=== PATIENT | male | born 1970 | race Caucasian/White ===

== ENCOUNTER 2022-08-10 15:03 | Inpatient (IN) ==
--- NOTE | 2022-08-10 15:28 | XRay Report ---
XR chest 1V portable CLINICAL HISTORY: Chest pain, nonspecific TECHNIQUE: Single frontal radiograph of the chest was obtained. Comparison: None available at the time of this dictation. FINDINGS: No lines and tubes are seen. Cardiomegaly is noted. The lungs are clear. No evidence of pleural effus ion or pneumothorax. IMPRESSION: ACT 112: Negative or not required by law. Electronically signed by: Gary Austin M.D. 08/10/2022 3:27 PM
[2022-08-10 15:41] LABS: Basophils # (auto) 0.05 K/uL (0-0.2); Basophils % (auto) 0.6 %; Eosinophils # (auto) 0.12 K/uL (0-0.50); Eosinophils % (auto) 1.4 %; Hematocrit (blood only) 43.1 % (40.1-51.0); Hemoglobin 15.1 g/dl (14.0-18.0); Immature Granulocytes # (auto) 0.04 K/uL (0.00-0.02); Immature Granulocytes % (auto) 0.5 %; Lymphocytes # (auto) 3.68 K/uL (1.2-3.4); Lymphocytes % (auto) 41.7 %; Mean Corpuscular Hemoglobin 30.9 pg (25.0-34.0); Mean Corpuscular Volume 88.1 fL (80.0-100.0); Mean Platelet Volume 8.8 fL (9.4-12.4); Monocytes # (auto) 0.73 K/uL (0.24-0.82); Monocytes % (auto) 8.3 %; Neutrophils # (auto) 4.21 K/uL (1.4-6.5); Neutrophils % (auto) 47.5 %; Platelet Count 257 K/uL (130-400); RDW Coefficient of Variation 12.5 % (11.5-14.5); RDW Standard Deviation 39.9 fL (36.4-46.3); Red Blood Count 4.89 M/uL (4.63-6.08); White Blood Count 8.83 K/ul (4.8-10.8)
--- NOTE | 2022-08-10 16:03 | Emergency Department Note ---
History of Present Illness General Chief complaint: Chest Pain Stated complaint: CHEST PAIN Time Seen by Provider: 08/10/22 15:08 History of Present Illness Maximum Pain Intensity: 1 52-year-old male presents to the ED with a chief complaint of chest pain for the past 1 to 2 weeks. The patient states that his symptoms seem to be mostly present when walking or exertion. Last night it seemed to be present a little at rest. He reports a history of high cholesterol. He states that his symptoms started after a COVID-like illness a couple of weeks ago. Denies any pain or swelling in his legs. No fevers fevers. No additional complaints at this time. Home Medications Medication Instructions Recorded Confirmed Type atorvastatin 20 mg tablet 20 mg PO HS 08/10/22 08/10/22 History Allergies Allergy/AdvReac Type Severity Reaction Status Date / Time No Known Allergies Allergy Unverified 08/10/22 16:01 Past Med/Surg History Medical History High cholesterol Social History Smoking Status: Never smoker Preferred Language: Swedish Feels Safe at Home: Yes Review of Systems A total of 10 systems reviewed and were otherwise negative Physical Exam Vital Signs Vital Signs - 24 hr 08/10/22 15:04 08/10/22 15:47 Temperature 36.5 C Temperature Source Temporal Artery Scan Pulse Rate 72 Respiratory Rate 19 Respiratory Effort / Characteristics Non-Labored Respiratory Depth Normal Blood Pressure 181/122 H Blood Pressure Mean 141 Pulse Oximetry 98 97 Oxygen Delivery Method Room Air Room Air Sepsis Recent Fever Within 48 Hours No Sepsis New/Unexplained Change in Mental Status N/A Sepsis Action Taken by Nursing No Action Required CONSTITUTIONAL/VITAL SIGNS: Reviewed / noted above. GENERAL: Non-toxic in appearance. INTEGUMENTARY: Warm, dry, and [place]. HEAD: Normocephalic. EYES: without scleral icterus or trauma. ENT/OROPHARYNX: clear and moist. LYMPHADENOPATHY/NECK: Is supple without lymphadenopathy or meningismus. RESPIRATORY: Clear to auscultation bilaterally. No increased work of breathing. CARDIOVASCULAR: Regular rate and rhythm. GI/ABDOMEN: Soft and nontender. No organomegaly or pulsatile mass. EXTREMITIES: Warm and well perfused. BACK: No CVA tenderness. NEUROLOGICAL: Intact without focal deficits. PSYCHIATRIC: normal affect. MUSCULOSKELETAL: Normally developed with good muscle tone. TRIAGE NURSING DOCUMENTATION REVIEWED. Medical Decision Making Differential Diagnosis The differential that was considered includes acute myocardial infarction, acute coronary syndrome, myocarditis, pericarditis, pericardial effusions /tamponade, esophageal perforation, thoracic aortic dissection, pulmonary embolism, pneumonia, pneumothorax, pancreatitis, shingles, acute cholecystitis, perforated abdominal viscus. Medical Records Attestation: I reviewed the patient's medical records. Home Medications Current Medication List: was personally reviewed by me Laboratory Data Attestation: I reviewed the patient's lab results. Result diagrams: 08/10/22 15:20 08/10/22 15:20 Lab Results 08/10/22 08/10/22 Range/Units 15:20 15:20 WBC 8.83 (4.8-10.8) K/ul RBC 4.89 (4.63-6.08) M/uL Hgb 15.1 (14.0-18.0) g/dl Hct 43.1 (40.1-51.0) % MCV 88.1 (80.0-100.0) fL MCH 30.9 (25.0-34.0) pg MCHC 35.0 (32.0-36.0) g/dL RDW Std Deviation 39.9 (36.4-46.3) fL RDW Coeff of Jose Angel 12.5 (11.5-14.5) % Plt Count 257 (130-400) K/uL MPV 8.8 L (9.4-12.4) fL Immature Gran % (Auto) 0.5 % Neut % (Auto) 47.5 % Lymph % (Auto) 41.7 % [place] % (Auto) 8.3 % Eos % (Auto) 1.4 % Baso % (Auto) 0.6 % Neut # (Auto) 4.21 (1.4-6.5) K/uL Lymph # (Auto) 3.68 H (1.2-3.4) K/uL [place] # (Auto) 0.73 (0.24-0.82) K/uL Eos # (Auto) 0.12 (0-0.50) K/uL Baso # (Auto) 0.05 (0-0.2) K/uL Immature Gran # (Auto) 0.04 H (0.00-0.02) K/uL Sodium 141 (136-145) mmol/L Potassium 3.7 (3.5-5.1) mmol/L Chloride 105 (98-107) mmol/L Carbon Dioxide 27 (21-32) mmol/L Anion Gap 9 (3-11) BUN 14 (6-23) mg/dl Creatinine 1.06 (0.6-1.4) mg/dl Est Cr Clr Drug Dosing 106.4 ml/min Est GFR ( Amer) 94.4 ml/min Est GFR (Non-Af Amer) 81.4 ml/min BUN/Creatinine Ratio 13.2 (10-20) Glucose 102 H (70-99(Fasting)) mg/dl Calcium 9.2 (8.5-10.1) mg/dl Total Bilirubin 0.4 (0.2-1.0) mg/dl AST 20 (13-39) U/L ALT 31 (7-52) U/L Alkaline Phosphatase 63 (34-104) U/L Troponin I High Sens 16.7 (0-20) pg/ml Total Protein 7.7 (6.0-8.3) gm/dl Albumin 4.6 (3.4-5.0) gm/dl Globulin 3.1 (2.5-4.0) gm/dl Albumin/Globulin Ratio 1.5 (0.9-2) Lipase 41 (11-82) U/L Imaging Data My Impression: Chest x-ray: Per my review, agree with radiologist interpretation of no acute disease. N the radiologist Radiologist's Impression: Chest X-Ray 08/10/22 15:09 XR chest 1V portable CLINICAL HISTORY: Chest pain, nonspecific TECHNIQUE: Single frontal radiograph of the chest was obtained. Comparison: None available at the time of this dictation. FINDINGS: No lines and tubes are seen. Cardiomegaly is noted. The lungs are clear. No evidence of pleural effusion or pneumothorax. IMPRESSION: ACT 112: Negative or not required by law. Electronically signed by: Gary Austin M.D. 08/10/2022 3:27 PM ECG Data Attestation: I personally reviewed and interpreted this ECG as follows: Additional Comments: Twelve-lead EKG: Per my interpretation shows a normal sinus rhythm at a rate of 72. Notes elevation. No PVCs. Normal QTC MDM Narrative 52-year-old male presents with chest pain that seems to be more prominent with exertion over the past week or 2. Last night it was prominent slightly at rest. History of high cholesterol. Vital signs reveal hypertension. Physical exam was unremarkable. The patient's EKG shows a sinus rhythm without acute ischemic changes. Chest x-ray did not show acute process. The troponin does not show any concerning elevations. CBC and chemistry was unremarkable. No significant anemia. The patient has symptoms concerning for unstable angina. He will be seen by the hospitalist for further evaluation and care. Impression & Plan Angina pectoris, unstable Discharge Plan Visit Data Chief Complaint: Chest Pain Stated Complaint: CHEST PAIN ED Provider: Bola Galaviz Discharge Problem: Angina pectoris, unstable Patient Disposition: Being Evaluated by Hospitalist Forms Stand Alone Forms: [facility] Prescriptions Prescriptions: No Action atorvastatin 20 mg tablet 20 mg PO HS Referrals Referrals: PCP,NO [Primary Care Provider] -
[2022-08-10 16:12] LABS: Troponin I High Sensitivity 16.7 pg/ml (0-20)
[2022-08-10 16:19] LABS: Albumin Globulin Ratio 1.5 (0.9-2); Albumin Level 4.6 gm/dl (3.4-5.0); BUN Creatinine Ratio 13.2 (10-20); Bilirubin,Total 0.4 mg/dl (0.2-1.0); Calcium 9.2 mg/dl (8.5-10.1); Creatinine Clr Calc Pharmacy 106.4 ml/min; Est GFR (African American) 94.4 ml/min; Est GFR (Non-African American) 81.4 ml/min; Globulin 3.1 gm/dl (2.5-4.0); Potassium 3.7 mmol/L (3.5-5.1); Total Protein 7.7 gm/dl (6.0-8.3)
[2022-08-10] MEDS ORDERED: ASPIRIN CHEW 324 MG PO STA (16:34)
[2022-08-10] MEDS ORDERED: NITROGLYCERIN 2% OINTMENT 30GM TUBE EXT ONE (16:48)
--- NOTE | 2022-08-10 16:49 | History & Physical Report ---
Date of Service August 10, 2022 Assessment & Plan (1) Angina pectoris, unstable: Plan: Rule out alternative explanations for chest pain given recent COVID will take a D-dimer to assess need for CT for PE However he has very typical unstable angina symptoms Serial troponins overnight - would expect these to be negative or minimally elevated given pain at rest was yesterday Given previous normal stress test and typical pain for coronary artery disease we will consult cardiology to forgo stress testing and perform cardiac cath. TTE Lipid panel in AM HbA1C NPO after midnight for cardiac cath tomorrow pending cardiology consult (2) High cholesterol: Plan: Continue atorvastatin 20 mg p.o. at bedtime -will need to be increased to high intensity statin depending on lipid panel and coronary catheterization Plan VTE Prophylaxis - Lovenox 40mg SQ daily Diet - heart healthy Disposition - observation to PCU Admission and Anticipated Discharge Date Admission Date: August 10, 2022 History of Present Illness Chief Complaint: Chest pain Primary Care Provider: NO PCP Jeremie Schmitz is a 52-year-old male who presents to the ER with chest pain. He reports typical substernal chest pain on exertion. Severity 2 out of 10 on walking to the emergency room today. Progressively getting worse over the last 2 weeks with less and less exertion and occurred at rest yesterday evening. No episodes at rest today. No worse on inspiration or position. He has never had this pain before but reports having a stress test performed by Dr. Tejada in [place] 1.5 years ago which was normal. He denies any history of diabetes. Non-smoker. He has treated hypercholesterolemia with atorvastatin. Although his blood pressure in the emergency room is elevated he reports this was previously normal at his last visit with Dr. Tejada earlier this year and he is not on any antihypertensives. He has a significant family history of myocardial infarction with his father in his early 60s and grandfather at unknown age. This is on a background of a respiratory illness that he believes was COVID approximately 4 weeks ago. His family was tested positive after he became ill therefore he also seemed he had the illness. He did not require hospitalization but reports the chest pain started a few weeks after this illness. Allergies Allergy/AdvReac Type Severity Reaction Status Date / Time No Known Allergies Allergy Unverified 08/10/22 16:01 Home Medications Medication Instructions Recorded Confirmed Type atorvastatin 20 mg tablet 20 mg PO HS 08/10/22 08/10/22 History Past Med/Surg History Medical History High cholesterol Social History Smoking Status: Never smoker Hx Alcohol Use: Yes Alcohol type: beer, wine and hard liquor Hx Substance Use: No Preferred Language: Setswana Pool Technician Required: No Beliefs That Will Affect Care: None Current Living Situation: Spouse Other Information That Helps Us Care for You: No Feels Safe at Home: Yes Safety Concerns: Feels Safe At This Time Assistive Devices: BiPap Review of Systems Review of Systems: All systems reviewed & are unremarkable except as noted in HPI & below Physical Exam Constitutional: WD/WN, vitals as above Respiratory: normal respiratory effort, lungs clear to auscultation Cardiovascular: RRR, no murmur, no edema Gastrointestinal (Abdomen): normal bowel sounds, soft, nontender, no hepa tosplenomegaly Musculoskeletal: no cyanosis or clubbing, extremities motor strength 5/5 Skin: no rashes, warm and dry Neurologic: moves all extremities and awake; not confused Psychiatric: A+Ox3, euthymic affect Results & Data Results & Data ([facility]) Vital Signs (Past 12 Hours) Vital Signs Temp Pulse Resp BP Pulse Ox O2 Del Method 08/10/22 15:47 97 Room Air 08/10/22 15:04 36.5 C 72 19 181/122 H 98 Room Air Laboratory Results Abnormal lab results 08/10/22 08/10/22 Range/Units 15:20 15:20 MPV 8.8 L (9.4-12.4) fL Lymph # (Auto) 3.68 H (1.2-3.4) K/uL Immature Gran # (Auto) 0.04 H (0.00-0.02) K/uL Glucose 102 H (70-99(Fasting)) mg/dl Diagnostic Findings XR chest 1V portable CLINICAL HISTORY: Chest pain, nonspecific TECHNIQUE: Single frontal radiograph of the chest was obtained. Comparison: None available at the time of this dictation. FINDINGS: No lines and tubes are seen. Cardiomegaly is noted. The lungs are clear. No evidence of pleural effusion or pneumothorax. Medications Administered ER medications given: Aspirin 324 mg p.o. ECG Indication: chest pain Rate (beats per minute): 72 Rhythm: normal sinus Findings: no acute ischemic change Comparison ECG Date: no prior available Code Status & VTE Plan Code Status Full VTE Prophylaxis Plan VTE Prophylaxis will be ordered: Yes PG Care Time/CCT Total # of Minutes Spent Total Time Spent with Patient: Total time spent is greater than 50% in coordination of care (as documented) at patient's floor/unit and/or counseling patient: Coding Level of Care Code INT OBSERVATION CARE 70M LVL 3 Diagnoses Angina pectoris, unstable I20.0 High cholesterol E78.00
[2022-08-10 17:43] LABS: D Dimer 260 ug/L FEU (0-500); Partial Thromboplastin Time 28.4 Seconds (21.0-31.0); Prothrombin Time 10.3 Seconds (9.0-12.0)
[2022-08-10] MEDS ORDERED: ONDANSETRON INJ 2 MG/ML 2 ML VIAL IV PRN (18:39)
[2022-08-10] MEDS ORDERED: NITROGLYCERIN SL 0.4 MG/TAB TAB SL PRN (18:39)
[2022-08-10] MEDS: METOPROLOL TARTRATE 25 MG TAB PO SCH (20:47)
[2022-08-10] MEDS ORDERED: ATORVASTATIN 20 MG TAB PO SCH (21:00)
[2022-08-10] MEDS ORDERED: ENOXAPARIN INJ 40 MG/0.4 ML SYR SQ SCH (21:55)
--- NOTE | 2022-08-10 23:13 | Electrocardiogram Report ---
Test Reason : Blood Pressure : / mmHG Vent. Rate : 072 BPM Atrial Rate : 072 BPM P-R Int : 198 ms QRS Dur : 080 ms QT Int : 346 ms P-R-T Axes : 050 043 -08 degrees QTc Int : 378 ms Normal sinus rhythm Poor R wave progression, consider anterior HI vs. lead placement vs. LVH Nonspecific T wave abnormality Abnormal ECG No previous ECGs available Confirmed by Sp Alicea ([id number]) on 08/10/2022 11:13:24 PM Referred By: Confirmed By:Sp Alicea
[2022-08-10] MEDS: NITROGLYCERIN 2% OINTMENT 30GM TUBE EXT SCH (23:51)
[2022-08-11 04:44] LABS: Basophils # (auto) 0.04 K/uL (0-0.2); Basophils % (auto) 0.4 %; Eosinophils # (auto) 0.14 K/uL (0-0.50); Eosinophils % (auto) 1.4 %; Hematocrit (blood only) 39.1 % (40.1-51.0); Hemoglobin 13.7 g/dl (14.0-18.0); Immature Granulocytes # (auto) 0.03 K/uL (0.00-0.02); Immature Granulocytes % (auto) 0.3 %; Lymphocytes # (auto) 3.61 K/uL (1.2-3.4); Lymphocytes % (auto) 35.2 %; Mean Corpuscular Volume 88.5 fL (80.0-100.0); Monocytes % (auto) 7.8 %; Neutrophils # (auto) 5.65 K/uL (1.4-6.5); Neutrophils % (auto) 54.9 %; Platelet Count 235 K/uL (130-400); RDW Coefficient of Variation 12.8 % (11.5-14.5); RDW Standard Deviation 41.1 fL (36.4-46.3); Red Blood Count 4.42 M/uL (4.63-6.08); White Blood Count 10.27 K/ul (4.8-10.8)
[2022-08-11 05:18] LABS: Anion Gap 8 (3-11); Blood Urea Nitrogen 17 mg/dl (6-23); Calcium 8.9 mg/dl (8.5-10.1); Carbon Dioxide 23 mmol/L (21-32); Chloride 108 mmol/L (98-107); Cholesterol 195 mg/dl (0-200); Creatinine Clr Calc Pharmacy 99.8 ml/min; Est GFR (African American) 87.4 ml/min; Est GFR (Non-African American) 75.4 ml/min; Glucose 117 mg/dl (70-99(Fasting)); HDL Cholesterol 31 mg/dl; Magnesium 2.1 mg/dl (1.7-2.4); Potassium 3.9 mmol/L (3.5-5.1); Sodium 139 mmol/L (136-145); Triglycerides 442 mg/dl (0-150)
[2022-08-11] MEDS: NITROGLYCERIN 2% OINTMENT 30GM TUBE EXT SCH ×2 (05:27→11:35)
[2022-08-11 05:28] LABS: Chol HDL Ratio 6.3 (0-5)
[2022-08-11 06:31] LABS: Estimated Average Glucose 134 mg/dl; Hemoglobin A1C 6.3 % (4.5-5.6)
[2022-08-11] MEDS: ASPIRIN 81 MG ECTAB PO SCH (08:26)
[2022-08-11] MEDS: METOPROLOL TARTRATE 25 MG TAB PO SCH ×2 (08:26→19:38)
[2022-08-11] MEDS ORDERED: ACETAMINOPHEN 325 MG TAB PO PRN (08:29)
[2022-08-11] MEDS ORDERED: LACTATED RINGER'S 1,000 ML IV SCH (08:45)
--- NOTE | 2022-08-11 09:38 | XCELERA ---
[id number]
[2022-08-11] MEDS ORDERED: HEPARIN (PORCINE) 1000 UNIT/ML 10 ML (CATH LAB USE ONLY) ONE ×2 (10:51→12:36)
[2022-08-11] MEDS ORDERED: niCARdipine HCL INJ 2.5 MG/ML 10 ML AMP ONE (10:51)
[2022-08-11] MEDS ORDERED: NITROGLYCERIN/D5W 100MCG/ML 20ML SYR ONE (10:52)
[2022-08-11] MEDS ORDERED: fentaNYL citrate 100 MCG/2 ML VIAL ONE ×2 (10:52→12:48)
[2022-08-11] MEDS ORDERED: MIDAZOLAM HCL 1 MG/ML 2ML VIAL ONE ×3 (10:52→12:48)
--- NOTE | 2022-08-11 10:53 | Pre Anesthesia Assessment ---
Date of Service August 11, 2022 Pre Sedation Assessment Vital Signs Temp Pulse Pulse Resp BP BP Pulse Ox 08/11/22 08:53 67 08/11/22 07:16 36.3 C L 64 19 111/65 93 08/11/22 03:52 36.6 C 61 18 113/71 94 08/10/22 22:02 36.7 C 61 19 132/71 95 08/10/22 20:48 37 C 73 18 129/72 95 08/10/22 19:41 08/10/22 19:31 74 18 126/78 94 08/10/22 18:00 72 16 96 08/10/22 18:00 139/83 08/10/22 17:30 78 15 96 08/10/22 17:30 150/88 H 08/10/22 17:11 152/99 H 08/10/22 17:11 73 17 98 08/10/22 16:31 181/97 H 08/10/22 16:30 76 20 95 08/10/22 16:01 189/88 H 08/10/22 16:01 80 15 96 08/10/22 16:00 77 15 97 08/10/22 15:30 76 15 98 08/10/22 15:30 185/107 H 08/10/22 15:29 78 15 08/10/22 16:52 08/10/22 16:41 80 16 181/97 H 95 08/10/22 15:47 97 08/10/22 15:04 36.5 C 72 19 181/122 H 98 Pulse Ox O2 Del Method O2 Del Method 08/11/22 08:53 08/11/22 07:16 Room Air 08/11/22 03:52 BiPAP 08/10/22 22:02 Room Air 08/10/22 20:48 Room Air 08/10/22 19:41 94 Room Air 08/10/22 19:31 Room Air 08/10/22 18:00 08/10/22 18:00 08/10/22 17:30 08/10/22 17:30 08/10/22 17:11 08/10/22 17:11 08/10/22 16:31 08/10/22 16:30 08/10/22 16:01 08/10/22 16:01 08/10/22 16:00 08/10/22 15:30 08/10/22 15:30 08/10/22 15:29 08/10/22 16:52 Room Air 08/10/22 16:41 Room Air 08/10/22 15:47 Room Air 08/10/22 15:04 Room Air Cardiovascular RRR, no murmur, no edema Respiratory normal respiratory effort, lungs clear to auscultation Pre-Sedation Airway Assessment Smoking Status: Never smoker Mallampati Class: III ASA: ASA3 NPO Status Date of Last Intake of Fluids: 08/10/22 Time of Last Intake of Fluids: 21:00 Date of Last Intake of Solid Food: 08/10/22 Time of Last Intake of Solid Foods: 21:00 Procedure Planning Contraindications for Sedation: none Current Medications Reviewed: Yes Notes The planned sedation has been discussed with the patient. Informed Consent was obtained. I have identified the patient, determined the appropriateness of sedation and have assessed the patient immediately prior to the procedure. All medicine(s) and interventions are by my order.
--- NOTE | 2022-08-11 11:02 | Cardiology Consultation ---
Date of Consultation August 11, 2022 Assessment & Plan (1) Angina pectoris, unstable: (2) Dyslipidemia: (3) Elevated troponin: Plan ASSESSMENT/PLAN: 1. Unstable angina: Symptoms concerning for unstable angina and had mildly elevated troponin. Recommend cardiac catheterization. Risks and benefits discussed with him in detail. He was made aware that CT surgery is not available at this facility. Recommend aspirin, beta-brigitte, and statin therapy. If there is a delay in cardiac catheterization, would start heparin drip for recurrent symptoms. 2. Dyslipidemia: If found to have CAD, would recommend high intensity statin therapy. Direct LDL ordered at this time. Triglycerides elevated. Mediterranean diet. If adjustment in statin therapy is made and triglycerides do not show much improvement, could consider specific treatment for triglyceridemia, in addition to statin therapy. 3. Elevated troponin: Plan as above. Currently chest pain-free. 4. Disposition: Plan of care communicated with Dr. Callahan of the primary hospitalist service. Cardiac catheterization currently pending. Follow-up with his primary pipeline dispatch operator, Dr. Tejada, when discharged. Highly complex medical issues for which cardiac catheterization was recommended. Thank you for allowing me to participate in the care of your patient. Please call for any other questions or concerns. Sincerely, Faheem Alicea M.D. History of Present Illness Reason for Consultation: Unstable angina Requesting Physician: Pedro Callahan MD Attending Physician: Pedro Callahan MD History of Present Illness Mr. Schmitz is a very pleasant 52-year-old gentleman with a history significant for dyslipidemia. His primary pipeline dispatch operator is Dr. Tejada in [facility]. Over the past few weeks, he has developed substernal chest pressure with exertion. It is occurring more frequently and now to the point that it occurs daily with most exertion. It can occur even on a flat surface walking only 100 feet. He had an episode at rest 2 nights ago but wonders if it was related to a large meal. The chest discomfort does not radiate and there is no associated nausea, diaphoresis, or dyspnea. Chest discomfort resolves within a couple of minutes of rest. He drove himself here and had no chest discomfort while driving but on the walk from the parking lot into the emergency department, had the same chest discomfort. It resolved with rest before receiving medical therapy. He has not had any further chest discomfort since admission. His initial troponin was 16.7 and increased to a peak of 55.4 before trending downward. His initial ECG demonstrated sinus rhythm with nonspecific T wave abnormality. He denies melena, hematochezia, hematuria, palpitations, syncope, near syncope, edema, nausea, or vomiting. He had a stress test approximately 1.5 years ago with his primary pipeline dispatch operator. He states that the test was done for hypertension. He was not experiencing chest discomfort at that time. He had COVID infection prior to the stress test and was reinfected again approximately 1 month ago. He has been on a statin therapy through his primary pipeline dispatch operator. He has not required hypertension treatment. Review of systems: As above. Review of systems otherwise negative/unremarkable. Family history: Father had [place] in his 60s. Social history: He denies smoking or drug abuse. Occasional alcohol. He lives at home with his girlfriend and 2 teenage daughter he had his 3 daughters in total. He is not . He owns [employer]. He was unaccompanied in his hospital room. He states that if he is unable to make decisions for himself, he prefers that his mother, Rand Nation ([phone]), makes decisions for him. Allergies Allergy/AdvReac Type Severity Reaction Status Date / Time No Known Allergies Allergy Unverified 08/10/22 16:01 Home Medications Medication Instructions Recorded Confirmed Type atorvastatin 20 mg tablet 20 mg PO HS 08/10/22 08/10/22 History Patient History Medical History (Updated 08/11/22 @ 11:28 by Sp Alicea MD) Dyslipidemia Social History Smoking Status: Never smoker Hx Alcohol Use: Yes Alcohol type: beer, wine and hard liquor Hx Substance Use: No Preferred Language: Turkmen Associate Accountant Required: No Beliefs That Will Affect Care: None Current Living Situation: Spouse Other Information That Helps Us Care for You: No Feels Safe at Home: Yes Safety Concerns: Feels Safe At This Time Assistive Devices: BiPap Physical Exam Physical Exam: Gen.: No acute distress. Alert and oriented. HEENT: Anicteric sclera. Neck: No JVD. No bruits. Normal carotid upstrokes bilaterally. Cardiac: PMI was nonpalpable. No ventricular heave. Regular. Normal S1-S2. No murmurs, rubs, or gallops. Pulmonary: Clear to auscultation bilaterally without wheezes, rales, or rhonchi. Abdomen: Soft, nontender, nondistended, with normoactive bowel sounds. No bruits noted. Extremities: 2+ radial pulses bilaterally. 2+ posterior tibialis pulses bilaterally. No edema or cyanosis. Psychiatric: Affect appears appropriate. Chest: Nontender to palpation. Results & Data ([facility]) Vital Signs (Past 12 Hours) Vital Signs Temp Pulse Pulse Resp BP Pulse Ox O2 Del Method 08/11/22 08:53 67 08/11/22 07:16 36.3 C L 64 19 111/65 93 Room Air 08/11/22 03:52 36.6 C 61 18 113/71 94 BiPAP Laboratory Results Laboratory Results - last 24 hr 08/10/22 08/10/22 08/10/22 15:20 15:20 15:20 WBC 8.83 RBC 4.89 Hgb 15.1 Hct 43.1 MCV 88.1 MCH 30.9 MCHC 35.0 RDW Std Deviation 39.9 RDW Coeff of Jose Angel 12.5 Plt Count 257 MPV 8.8 L Immature Gran % (Auto) 0.5 Neut % (Auto) 47.5 Lymph % (Auto) 41.7 Blount % (Auto) 8.3 Eos % (Auto) 1.4 Baso % (Auto) 0.6 Neut # (Auto) 4.21 Lymph # (Auto) 3.68 H Blount # (Auto) 0.73 Eos # (Auto) 0.12 Baso # (Auto) 0.05 Immature Gran # (Auto) 0.04 H PT 10.3 INR 1.0 APTT 28.4 PTT Ratio 1.0 D-Dimer 260 Sodium 141 Potassium 3.7 Chloride 105 Carbon Dioxide 27 Anion Gap 9 BUN 14 Creatinine 1.06 Est Cr Clr Drug Dosing 106.4 Est GFR ( Amer) 94.4 Est GFR (Non-Af Amer) 81.4 BUN/Creatinine Ratio 13.2 Glucose 102 H Estimat Average Glucose Hemoglobin A1c Calcium 9.2 Magnesium Total Bilirubin 0.4 AST 20 ALT 31 Alkaline Phosphatase 63 Troponin I High Sens 16.7 Total Protein 7.7 Albumin 4.6 Globulin 3.1 Albumin/Globulin Ratio 1.5 Triglycerides Cholesterol LDL Cholesterol, Calc VLDL Cholesterol, Calc HDL Cholesterol Cholesterol/HDL Ratio Lipase 41 SARS-CoV-2, RNA, NAAT 08/10/22 08/10/22 08/11/22 16:39 22:40 04:09 WBC 10.27 RBC 4.42 L Hgb 13.7 L Hct 39.1 L MCV 88.5 MCH 31.0 MCHC 35.0 RDW Std Deviation 41.1 RDW Coeff of Jose Angel 12.8 Plt Count 235 MPV 9.0 L Immature Gran % (Auto) 0.3 Neut % (Auto) 54.9 Lymph % (Auto) 35.2 Blount % (Auto) 7.8 Eos % (Auto) 1.4 Baso % (Auto) 0.4 Neut # (Auto) 5.65 Lymph # (Auto) 3.61 H Blount # (Auto) 0.80 Eos # (Auto) 0.14 Baso # (Auto) 0.04 Immature Gran # (Auto) 0.03 H PT INR APTT PTT Ratio D-Dimer Sodium Potassium Chloride Carbon Dioxide Anion Gap BUN Creatinine Est Cr Clr Drug Dosing Est GFR ( Amer) Est GFR (Non-Af Amer) BUN/Creatinine Ratio Glucose Estimat Average Glucose Hemoglobin A1c Calcium Magnesium Total Bilirubin AST ALT Alkaline Phosphatase Troponin I High Sens 54.2 H* D Total Protein Albumin Globulin Albumin/Globulin Ratio Triglycerides Cholesterol LDL Cholesterol, Calc VLDL Cholesterol, Calc HDL Cholesterol Cholesterol/HDL Ratio Lipase SARS-CoV-2, RNA, NAAT NEGATIVE 08/11/22 08/11/22 08/11/22 04:09 04:09 04:09 WBC RBC Hgb Hct MCV MCH MCHC RDW Std Deviation RDW Coeff of Jose Angel Plt Count MPV Immature Gran % (Auto) Neut % (Auto) Lymph % (Auto) Blount % (Auto) Eos % (Auto) Baso % (Auto) Neut # (Auto) Lymph # (Auto) Blount # (Auto) Eos # (Auto) Baso # (Auto) Immature Gran # (Auto) PT INR APTT PTT Ratio D-Dimer Sodium 139 Potassium 3.9 Chloride 108 H Carbon Dioxide 23 Anion Gap 8 BUN 17 Creatinine 1.13 Est Cr Clr Drug Dosing 99.8 Est GFR ( Amer) 87.4 Est GFR (Non-Af Amer) 75.4 BUN/Creatinine Ratio 15.0 Glucose 117 H Estimat Average Glucose 134 Hemoglobin A1c 6.3 H Calcium 8.9 Magnesium 2.1 Total Bilirubin AST ALT Alkaline Phosphatase Troponin I High Sens 55.4 H* Total Protein Albumin Globulin Albumin/Globulin Ratio Triglycerides 442 H Cholesterol 195 LDL Cholesterol, Calc TNP VLDL Cholesterol, Calc TNP HDL Cholesterol 31 Cholesterol/HDL Ratio 6.3 H Lipase SARS-CoV-2, RNA, NAAT 08/11/22 09:52 WBC RBC Hgb Hct MCV MCH MCHC RDW Std Deviation RDW Coeff of Jose Angel Plt Count MPV Immature Gran % (Auto) Neut % (Auto) Lymph % (Auto) Blount % (Auto) Eos % (Auto) Baso % (Auto) Neut # (Auto) Lymph # (Auto) Blount # (Auto) Eos # (Auto) Baso # (Auto) Immature Gran # (Auto) PT INR APTT PTT Ratio D-Dimer Sodium Potassium Chloride Carbon Dioxide Anion Gap BUN Creatinine Est Cr Clr Drug Dosing Est GFR ( Amer) Est GFR (Non-Af Amer) BUN/Creatinine Ratio Glucose Estimat Average Glucose Hemoglobin A1c Calcium Magnesium Total Bilirubin AST ALT Alkaline Phosphatase Troponin I High Sens 40.6 H D Total Protein Albumin Globulin Albumin/Globulin Ratio Triglycerides Cholesterol LDL Cholesterol, Calc VLDL Cholesterol, Calc HDL Cholesterol Cholesterol/HDL Ratio Lipase SARS-CoV-2, RNA, NAAT Diagnostic Findings Echo 08/11/2022: Normal LV size, wall motion, systolic function. EF 60 to 65%. Moderate LVH. No significant valvular abnormalities. Chest x-ray 08/10/2022: Personally reviewed. No infiltrate. Lungs appeared clear. ECG personally reviewed as noted above in HPI. Telemetry personally reviewed: Sinus rhythm. No arrhythmia. Medications Administered Current Inpatient Medications Acetaminophen (Acetaminophen 325 Mg Tab) 650 mg PO Q4H PRN PRN Reason: Pain or Fever Stop: 09/10/22 08:28 Aspirin (Aspirin 81 Mg Ectab) 81 mg PO QAM [facility] Stop: 09/10/22 08:59 Last Admin: 08/11/22 08:26 Dose: 81 mg Atorvastatin Calcium (Atorvastatin 20 Mg Tab) 20 mg PO HS [facility] Stop: 09/09/22 20:59 Last Admin: 08/10/22 20:47 Dose: 20 mg Enoxaparin Sodium (Enoxaparin Inj 40 Mg/0.4 Ml Syr) 40 mg SQ QPM [facility] Stop: 09/09/22 21:54 Last Admin: 08/10/22 23:51 Dose: 40 mg Lactated Ringer's (Lr) 1,000 mls @ 100 mls/hr IV .Q10H [facility] Stop: 09/10/22 08:44 Last Admin: 08/11/22 10:23 Dose: 100 mls/hr Metoprolol Tartrate (Metoprolol Tartrate 25 Mg Tab) 25 mg PO BID [facility] Stop: 09/09/22 20:59 Last Admin: 08/11/22 08:26 Dose: 25 mg Nitroglycerin (Nitroglycerin Sl 0.4 Mg/Tab Tab) 0.4 mg SL UD PRN PRN Reason: Chest Pain Stop: 09/09/22 18:38 Nitroglycerin (Nitroglycerin 2% Ointment 30gm Tube) 1 inch EXT Q6 [facility] Stop: 09/10/22 00:00 Last Admin: 08/11/22 05:27 Dose: 1 inch Ondansetron HCl (Ondansetron Inj 2 Mg/Ml 2 Ml Vial) 4 mg IV Q6H PRN PRN Reason: Nausea Stop: 09/09/22 18:38 PG Care Time/CCT Total # of Minutes Spent Total Time Spent with Patient: Total time spent is greater than 50% in coordination of care (as documented) at patient's floor/unit and/or counseling patient: Coding Level of Care Code 84961 Office/OBS Consult Lvl 5 Diagnoses Angina pectoris, unstable I20.0 Dyslipidemia E78.5 Elevated troponin R77.8
--- NOTE | 2022-08-11 12:32 | Cardiac Catheterization ---
[facility] Data: Business Development Coordinator Cardiac Status Clinical evaluation leading to the procedure CAD Presenation: Unstable angina Anginal Classification: CCS IV Heart Failure: No Cardiogenic Shock within 24 Hours: No Cardiac Arrest within 24 Hours: No Imaging Studies Past 6 Months: Yes Stress Studies Past 6 Months: No Coronary Anatomy Dominant: Right Diagnostic Physicians Name: Sp Alicea MD Status: Elective Closure Device Percutaneous Entry Location: Radial Closure Device: Radial Band Recommendations: PCI without planned CABG Cardiac Cath Procedure Full Procedure Date August 11, 2022 Pre-Procedure Diagnosis Pre-Procedure Diagnosis: Angina AUC Score AUC Score: 8 Post-Procedure Diagnosis Post-Procedure Diagnosis: Severe CAD and Elevated Intracardiac Pressures Procedure(s) Performed Procedure(s) Performed: Coronary Angiography and Left Heart Cath Policy Service Coordinator Sp Alicea MD Pediatric Physician Assistant(s) Soni Packer Estimated Blood Loss Estimated Blood Loss: < 20 ml Medication(s) Medication(s): Fentanyl, Heparin, Lidocaine 1%, Nicardipine and Versed Summary of Findings Procedures: 1. Coronary angiography 2. Left heart catheterization 3. Moderate sedation Indication: 52-year-old gentleman with a history of dyslipidemia who presented with unstable angina and mildly elevated troponin elevation. Cardiac catheterization was recommended. Coronary angiography: 1. Left main: Distal left main 30%. 2. Left anterior descending: Proximal LAD 30 to 40%. Luminal irregularities within the mid LAD. LAD does not extend to the apex. Large D1 with proximal 20% stenosis. 3. Circumflex: Proximal circumflex 20%. Mid circumflex 50 to 70% followed by 70 to 80% stenosis. KENDRA-3 flow. OM1 without significant CAD. 4. Right coronary artery: RCA is large and dominant. Proximal RCA 20 to 30%. Diffuse mid RCA 20 to 30%. Distal RCA 90%. PDA and PL without significant CAD. KENDRA-3 flow. Left heart catheterization: 1. Left ventriculography was not performed. 2. No significant aortic stenosis. 3. Mildly elevated LVEDP; 15 mmHg. Moderate sedation: 1. Sedation start time: 11:44 AM 2. Sedation end time: 12:06 PM Access site: Right radial artery without known complication. Procedural notes: 1. Patient had mild chest discomfort when injecting the left system. There were ECG changes noted with angiography of both the left system and RCA. Impression: 1. Severe CAD involving the RCA and circumflex. 2. Otherwise, nonobstructive CAD. 3. No aortic stenosis. 4. Mildly elevated LVEDP following normal saline bolus of 250 mL, which was given for mild hypotension following sedation. Plan: 1. Dr. Quach of interventional cardiology was asked to review images and consider PCI of the RCA and circumflex. 2. Risk factor modification. 3. Mr. Schmitz requested that I do not notify family of findings/plan. He prefers to inform them himself, unless unable to do so. Hemodynamics Rest Ao:: 95/60 Final Ao: 101/63 LV: 103/4/15 Recommendations Recommendations: PCI without planned CABG Specimens Specimens: None Radiation Exposure (mGy) 975 mGy. Fluoro time 2.4 min. Contrast (mls) 80 ml Procedural Complication(s) None Disposition remains in cardiac cath rn for PCI attempt I attest to the content of the Intraoperative Record and any orders documented therein. Any exceptions are noted below. [facility] Card Cath Procedure Codes Cardiac Catheterization Procedure 1: Cardiovascular Cath Procedures: 92278 Coronaries and LHC (+/-LV) Moderate Sedation Procedure 1: Sedation/Anesthesia: 89644 Mod Sedation by the same physician;Init15 Min Child Age 5 & Up Procedure 2: Sedation/Anesthesia: 56831 Mod Sedation by the same physician; Ea [id number] Minutes PG Care Time/CCT Total # of Minutes Spent Total Time Spent with Patient: Total time spent is greater than 50% in coordination of care (as documented) at patient's floor/unit and/or counseling patient:
[2022-08-11] MEDS ORDERED: CLOPIDOGREL BISULFATE 300 MG TAB ONE (13:12)
--- NOTE | 2022-08-11 13:22 | Post Anesthesia Assessment ---
Date of Service August 11, 2022 Post Sedation Assessment Vital Signs Temp Pulse Pulse Resp BP BP Pulse Ox 08/10/22 20:00 65 20 103/60 93 08/11/22 08:53 67 08/11/22 07:16 97.3 F L 64 19 111/65 93 08/11/22 03:52 97.9 F 61 18 113/71 94 08/10/22 22:02 98.1 F 61 19 132/71 95 08/10/22 20:48 98.6 F 73 18 129/72 95 08/10/22 19:41 08/10/22 19:31 74 18 126/78 94 08/10/22 18:00 72 16 96 08/10/22 18:00 139/83 08/10/22 17:30 78 15 96 08/10/22 17:30 150/88 H 08/10/22 17:11 152/99 H 08/10/22 17:11 73 17 98 08/10/22 16:31 181/97 H 08/10/22 16:30 76 20 95 08/10/22 16:01 189/88 H 08/10/22 16:01 80 15 96 08/10/22 16:00 77 15 97 08/10/22 15:30 76 15 98 08/10/22 15:30 185/107 H 08/10/22 15:29 78 15 08/10/22 16:52 08/10/22 16:41 80 16 181/97 H 95 08/10/22 15:47 97 08/10/22 15:04 97.7 F 72 19 181/122 H 98 Pulse Ox O2 Del Method O2 Del Method 08/10/22 20:00 Room Air 08/11/22 08:53 08/11/22 07:16 Room Air 08/11/22 03:52 BiPAP 08/10/22 22:02 Room Air 08/10/22 20:48 Room Air 08/10/22 19:41 94 Room Air 08/10/22 19:31 Room Air 08/10/22 18:00 08/10/22 18:00 08/10/22 17:30 08/10/22 17:30 08/10/22 17:11 08/10/22 17:11 08/10/22 16:31 08/10/22 16:30 08/10/22 16:01 08/10/22 16:01 08/10/22 16:00 08/10/22 15:30 08/10/22 15:30 08/10/22 15:29 08/10/22 16:52 Room Air 08/10/22 16:41 Room Air 08/10/22 15:47 Room Air 08/10/22 15:04 Room Air Recovery Score Activity: Moves 4 extremities Respiration: Deep Breath/Cough Circulation: +/-20% PreAnes Value Consciousness: Fully Awake Oxygen Saturation: O2 needed for >90% Discharge Sedation Level of Care: Fast Track Phase II Post Sedation Plan On clinical assessment, the patient appears to have tolerated the sedation without complications. Patient is recovering as anticipated. Patient will continue to be monitored by nursing and may be discharged when sedation discharge criteria are met per below protocol. Upon Completions of procedure up to 15 minutes continue every 5 minute vital signs and the P.A.R. score; then discharge to a Phase I or Fast Track to Phase II per the following guidelines: * Discharge Patient to appropriate Phase II area if PAR is 8 or greater or return to pre- procedure baseline. The post - procedure orders will be as directed. * If PAR score is less than 8 or not return to pre-procedure baseline then patient will follow Phase I monitoring till PAR is reached for Phase II. The Phase I may be done in procedure room or may call to secure a Phase I area. * If naloxone or flumazenil are used for reversal, hold in Phase I for continued monitoring from when last reversal dose was given for a minimum of 60 minutes or longer pending the nurse and/or physician discretion of patient condition before discharge to Phase II. Please call the Sedation Physician to re-evaluate and complete post-note for discharge to Phase II area. Do NOT discharge from procedure sedation or Phase 1 until post- sedation evaluation note is complete by procedure /sedation MD Sedation Discharge Instructions to be given to the patient at discharge to home.
--- NOTE | 2022-08-11 13:28 | Cardiac Catheterization ---
[facility] Data: Zinc Plate Grainer Cardiac Status Clinical evaluation leading to the procedure CAD Presenation: Unstable angina Anginal Classification: CCS III Heart Failure: No Diagnostic Physicians Name: Geovanny Quach MD Closure Device Recommendations: PCI without planned CABG Cardiac Cath Procedure Full Procedure Date August 11, 2022 Pre-Procedure Diagnosis Pre-Procedure Diagnosis: Angina and CAD AUC Score AUC Score: 8 Post-Procedure Diagnosis Post-Procedure Diagnosis: Severe CAD and Successful PCI Procedure(s) Performed Procedure(s) Performed: Coronary Angiography and Drug Eluting Stent Property Disposal Officer Geovanny Quach MD Accounting Technician(s) Soni Packer Estimated Blood Loss Estimated Blood Loss: < 20 ml Medication(s) Medication(s): Clopidogrel, Fentanyl, Heparin, Lidocaine 1%, Nicardipine, Nitroglycerin and Versed Summary of Findings Indication: Accelerating angina Access: 6 Fr right radial artery Catheters: EBU 3.5 guide, AR-1 guide Findings: For full details of patient's coronary angiography please see cath report dictated by Dr. Alicea. Briefly, patient found to have multivessel disease with 75% mid circumflex stenosis and 90% distal RCA stenosis. Decision to proceed with PCI. -- PCI -- Antithrombotic therapy: Heparin, clopidogrel Procedure: Left main cannulated with EBU 3.5 guide Pre-procedure flow KENDRA 3 Pastor 50 wire passed across lesion into distal circumflex Mid circumflex lesion predilated with 2.5 compliant balloon Dilated lesion stented with 3.5 x 28 mm Xience drug-eluting stent across takeoff of small OM1 Stent post-dilated with 3.75 noncompliant balloon IC vasodilators administered for spasm Post procedure KENDRA 3 flow, stent well expanded with minimal residual stenosis and no apparent cardiac complications. RCA cannulated with AR-1 guide Preprocedure flow KENDRA-3 Pastor 50 wire passed across distal stenosis into RPDA Distal RCA dilated with 2.5 balloon Distal RCA stented with 2.75 x 15 mm Xience drug-eluting stent Stent postdilated with 3.75 NC to high atmospheres IC vasodilators administered for spasm Post procedure KENDRA 3 flow, stent well expanded with minimal residual stenosis and no apparent cardiac complications. Arterial Closure: TR band Summary: 1. Successful PCI of mid circumflex with single drug-eluting stent (3.5 x 28 mm Xience; postdilated with 3.75 NC). 2. Successful PCI of distal RCA with single drug-eluting stent (2.75 x 15 mm Xience; postdilated with 3.75 NC). Recommendations: To PCU for continued monitoring Loaded with clopidogrel 600 mg in Zinc Plate Grainer Continue dual-antiplatelet therapy for at least 6 months Continue statin, and ASCVD risk factor modification Consult cardiac Rehab Hemodynamics Rest Ao:: Final Ao: LV: -- Recommendations Recommendations: PCI without planned CABG Specimens Specimens: None Radiation Exposure (mGy) 3125 Contrast (mls) 100 Anesthesia Moderate 6383-9603 Procedural Complication(s) None Disposition PCU I attest to the content of the Intraoperative Record and any orders documented therein. Any exceptions are noted below. [facility] Card Cath Procedure Codes Moderate Sedation Procedure 1: Sedation/Anesthesia: 71532 Mod Sedation by the same physician; Ea [id number] Minutes Stenting Procedure 1: Cardiovascular Stent Procedures: 19870 Perc transcatheter placement of intracoronary stent(s), with ang Procedure 2: Cardiovascular Stent Procedures: 53938 Ea addl branch of a major coronary artery PG Care Time/CCT Total # of Minutes Spent Total Time Spent with Patient: Total time spent is greater than 50% in coordination of care (as documented) at patient's floor/unit and/or counseling patient:
[2022-08-11] MEDS ORDERED: SODIUM CHLORIDE 0.9% 1000ML 1,000 ML IV SCH (13:30)
--- NOTE | 2022-08-11 18:48 | Hospitalist Progress Note ---
Date of Service August 11, 2022 Assessment & Plan (1) NSTEMI (non-ST elevated myocardial infarction): Plan: S/p cardiac catheterization [08/11] JOEY mid circumflex, JOEY distal RCA LVEF 60-65% Hemoglobin A1c 6.3 - consider metformin versus SGLT2 (given morbid obesity and cardiovascular protection) on discharge. Increase atorvastatin from 20 mg to 80 mg p.o. daily Aspirin 81 mg p.o. daily, clopidogrel 75 mg p.o. daily Metoprolol tartrate 25 mg p.o. twice daily Nitro paste discontinued (2) High cholesterol: Plan: Increase atorvastatin as above Plan VTE Prophylaxis - d/c LMWH status post catheterization Diet - heart healthy Disposition - change to full admission on PCU Admission and Anticipated Discharge Date Admission Date: August 10, 2022 Anticipated date of discharge: 08/12/22 Subjective Patient with some mild chest irritation following cardiac cath. Not yet been walking around the room. No shortness of breath, palpitations or leg swelling. Review of Systems Review of Systems: All systems reviewed & are unremarkable except as noted in Subjective Physical Exam Constitutional: WD/WN, vitals as above Respiratory: normal respiratory effort, lungs clear to auscultation Cardiovascular: RRR, no murmur, no edema Gastrointestinal (Abdomen): normal bowel sounds, soft, nontender, no hepatosplenomegaly Musculoskeletal: no cyanosis or clubbing, extremities motor strength 5/5 Skin: no rashes, warm and dry Neurologic: moves all extremities and awake; not confused Psychiatric: A+Ox3, euthymic affect Results & Data Results & Data ([facility]) Vital Signs (Past 12 Hours) Vital Signs Temp Pulse Pulse Resp BP Pulse Ox O2 Del Method 08/11/22 17:15 70 20 146/70 H 94 Room Air 08/11/22 18:14 79 18 156/76 H 95 Room Air 08/11/22 17:00 65 20 156/80 H 95 Room Air 08/11/22 16:30 67 18 129/75 96 Room Air 08/11/22 16:15 84 18 124/84 95 Room Air 08/11/22 16:00 69 18 130/82 94 Room Air 08/11/22 15:45 65 18 113/66 96 Room Air 08/11/22 15:14 79 18 129/84 94 Room Air 08/11/22 15:30 69 18 126/79 96 Room Air 08/11/22 15:23 72 08/11/22 14:30 60 18 142/89 H 96 Room Air 08/11/22 14:15 65 18 141/89 H 95 Room Air 08/11/22 14:01 36.6 C 61 18 133/83 95 Room Air 08/11/22 13:35 64 18 119/82 94 Room Air 08/11/22 13:20 65 18 117/69 96 Room Air 08/11/22 08:53 67 08/11/22 07:16 36.3 C L 64 19 111/65 93 Room Air PG Care Time/CCT Total # of Minutes Spent Total Time Spent with Patient: Total time spent is greater than 50% in coordination of care (as documented) at patient's floor/unit and/or counseling patient: Coding Level of Care Code 41933 Subseq Hosp Care Lvl 2 Diagnoses NSTEMI (non-ST elevated myocardial infarction) I21.4 High cholesterol E78.00
[2022-08-11] MEDS ORDERED: ATORVASTATIN 40 MG TAB PO SCH (21:00)
--- NOTE | 2022-08-12 05:36 | Electrocardiogram Report ---
Test Reason : Blood Pressure : / mmHG Vent. Rate : 066 BPM Atrial Rate : 066 BPM P-R Int : 214 ms QRS Dur : 086 ms QT Int : 386 ms P-R-T Axes : 028 029 -38 degrees QTc Int : 404 ms Sinus rhythm with 1st degree A-V block T wave abnormality, consider inferolateral ischemia Abnormal ECG When compared with ECG of 10-AUG-2022 15:10, Inverted T waves have replaced nonspecific T wave abnormality in Inferior leads Confirmed by Sp Alicea ([id number]) on 08/12/2022 5:35:35 AM Referred By: REFERRED SELF Confirmed By:Sp Alicea
[2022-08-12] MEDS ORDERED: CLOPIDOGREL BISULFATE 75 MG TAB PO SCH (09:00)
[2022-08-12] MEDS: ASPIRIN 81 MG ECTAB PO SCH (09:03)
[2022-08-12] MEDS: METOPROLOL TARTRATE 25 MG TAB PO SCH (09:03)
[2022-08-12 10:25] LABS: Hematocrit (blood only) 41.8 % (40.1-51.0); Hemoglobin 14.5 g/dl (14.0-18.0); Mean Corpuscular Hemoglobin 30.8 pg (25.0-34.0); Mean Corpuscular Hgb Conc 34.7 g/dL (32.0-36.0); Mean Corpuscular Volume 88.7 fL (80.0-100.0); Mean Platelet Volume 8.8 fL (9.4-12.4); Platelet Count 192 K/uL (130-400); RDW Coefficient of Variation 12.6 % (11.5-14.5); RDW Standard Deviation 40.9 fL (36.4-46.3); Red Blood Count 4.71 M/uL (4.63-6.08); White Blood Count 8.17 K/ul (4.8-10.8)
--- NOTE | 2022-08-12 10:53 | Discharge Summary ---
Date of Service August 12, 2022 Admission HPI Per Admitting Provider Jeremie Schmitz is a 52-year-old male who presents to the ER with chest pain. He reports typical substernal chest pain on exertion. Severity 2 out of 10 on walking to the emergency room today. Progressively getting worse over the last 2 weeks with less and less exertion and occurred at rest yesterday evening. No episodes at rest today. No worse on inspiration or position. He has never had this pain before but reports having a stress test performed by Dr. Tejada in [place] 1.5 years ago which was normal. He denies any history of diabetes. Non-smoker. He has treated hypercholesterolemia with atorvastatin. Although his blood pressure in the emergency room is elevated he reports this was previously normal at his last visit with Dr. Tejada earlier this year and he is not on any antihypertensives. He has a significant family history of myocardial infarction with his father in his early 60s and grandfather at unknown age. This is on a background of a respiratory illness that he believes was COVID approximately 4 weeks ago. His family was tested positive after he became ill therefore he also seemed he had the illness. He did not require hospitalization but reports the chest pain started a few weeks after this illness. Principal Diagnosis Unstable angina Discharge Exam General-alert and oriented x3, no fevers, no chills. Obese HEENT-head atraumatic and normocephalic, pupils equal and reactive to light, extraocular muscles intact Neck-no lymphadenopathy or thyromegaly, trachea midline Chest-clear to auscultation percussion. No rales wheezing or rhonchi Cardiac-regular rate and rhythm, normal S1 and S2 Abdomen-normal bowel sounds, nontender, no hepatosplenomegaly Extremities-no cyanosis, clubbing, or edema Neuro-cranial nerves II through XII intact, motor and sensory function within normal limits, strength symmetrical , no focal deficits Psych-normal affect, normal mood Discharge Data Allergies Allergy/AdvReac Type Severity Reaction Status Date / Time No Known Allergies Allergy Unverified 08/10/22 16:01 Consultations 08/10/22 17:40 Consult Cardiology Routine Procedures Performed Operation Date: 08/11/22 11:00 Actual Procedures p Cineradiography w/Routine Exam - Sp Alicea MD p Cath, Left with Cors and Vent - Sp Alicea MD s Drug Eluting Stent each ADDTL Vessel - Steven Quach MD s Drug Eluting Stent SGl Vessel - Steven Quach MD Ordered Studies 08/11/22 10:59 CL Cath Imgs for PACS use only Routine Hospital Course (1) NSTEMI (non-ST elevated myocardial infarction): Non-ST elevation [place] ruled out. This appears to be unstable angina. S/p cardiac catheterization [08/11] JOEY mid circumflex, JOEY distal RCA LVEF 60-65%. Increased atorvastatin from 20 mg to 80 mg p.o. daily. Aspirin, clopidogrel ,Metoprolol tartrate . Nitro paste discontinued (2) High cholesterol: Increase atorvastatin as above Plan VTE Prophylaxis - d/c LMWH status post catheterization Diet - heart healthy Disposition -discharge to home today, August 12, if cleared by cardiology Total Time Total Time Spent Total Time Spent (In Minutes): 35 minutes Discharge Plan Discharge Items Patient Disposition: Home - Self-Care Reason For Visit: unstable angina Discharge Diagnosis: Unstable angina Activity: As commented below Activity Comment: Avoid any overexertion until cleared by cardiology Non-emergency contact: Primary Care Provider and Engagement Manager Call non-emergency contact if: you have any medication questions and your symptoms worsen Follow-up/Referrals: PCP,NO [Primary Care Provider] - Diet: Heart Healthy Addtl Attending Provider Instructions: ACTIVITY RECOMMENDATIONS: Excess manipulation of the wrist should be avoided for the next 24-48 hours. * No lifting over 2 pounds (approximately a 1/2 gallon of milk) with the utilized arm for 24 hours. * No strenuous activity such as bowling or tennis for 3 days. * Keep the site of the procedure covered with a bandage for 24 hours. *You may shower the day after the procedure. Do not take a tub bath or submerge the puncture site in water for the next 3 days. *Do not operate any motorized equipment for 3 days. SPECIAL CARE INSTRUCTIONS: The site may be slightly bruised and sore following your procedure. Should any of the following occur, contact the DrAv who performed your procedure. 1. Redness/inflammation, swelling, chills, or fever, or colored drainage at procedure site within 3-7 days after your procedure. 2. Coldness, discoloration, ongoing numbness, severe pain, or swelling. Expect mild tingling of hand and tenderness at the puncture site for up to three days. If this persists beyond three days, or other symptoms develop, notify the Dr. who performed your procedure. BLEEDING: If the procedure site on your wrist begins to bleed, do not panic 1. Place 1 or 2 fingers firmly just slightly above the insertion site to stop the bleeding. You may be able to feel your pulse as you hold pressure. 2. Lift your finger after 5 minutes to see if the bleeding has stopped. 3. Once the bleeding has stopped, gently wipe the wrist area clean with a bandage. * If the bleeding from your wrist does not stop after 10 minutes, or if there is a large amount of bleeding or spurting, call 911 (do not drive yourself to the hospital). SKIN IRRITATION: * You may experience some redness and/or swelling in the area where radiation was administered. If any skin irritation occurs, please contact your family physician. FOLLOW UP VISIT: Keep any scheduled doctor appointments. Pending Studies at Discharge: No Stand-Alone Forms: My [facility], Smoking Cessation Medications and DC Order Prescriptions: New atorvastatin 40 mg Tablet 80 mg PO HS Qty: 30 0RF clopidogrel 75 mg Tablet 75 mg PO QAM Qty: 30 0RF aspirin 81 mg Tablet,Delayed Release (Dr/Ec) 81 mg PO QAM Qty: 100 0RF nitroglycerin [Nitrostat] 0.4 mg Tablet, Sublingual 0.4 mg sublingual UD PRN (Reason: chest pain) Qty: 25 0RF metoprolol tartrate 25 mg Tablet 25 mg PO BID Qty: 60 0RF Discontinued atorvastatin 20 mg tablet 20 mg PO HS Discharge Orders: Discharge Order (Routine); Ordered 08/12/22 Ordered By: Anthony Ramirez/Other Patient Handouts: Prediabetes, 5 Steps for Eating Healthier Admission Data Admit Date/Time: 08/11/22 21:07 Attending Provider: Anthony Walker Admit Provider: Pedro Callahan Primary Care Provider: PCP,NO Other Providers: Sp Alicea Coding Level of Care Code D/C DAY MANAGEMENT >30 MINS Diagnoses NSTEMI (non-ST elevated myocardial infarction) I21.4 High cholesterol E78.00
[2022-08-12 10:57] LABS: Calcium 9.2 mg/dl (8.5-10.1); Creatinine Clr Calc Pharmacy 104.5 ml/min; Est GFR (African American) 93.3 ml/min; Est GFR (Non-African American) 80.5 ml/min
--- NOTE | 2022-08-12 11:31 | Cardiology Progress Note ---
Date of Service August 12, 2022 Assessment & Plan (1) Angina pectoris, unstable: (2) CAD (coronary artery disease): (3) S/P coronary artery stent placement: (4) Dyslipidemia: Plan ASSESSMENT/PLAN: 1. Unstable angina: Symptoms have resolved following PCI. 2. CAD s/p RCA and Cx PCI: Discussed cath findings and PCI. Aspirin 81 mg daily indefinitely. Plavix 75 mg daily for at least 6 months but preferably a year. Discussed the importance of dual antiplatelet therapy. Continue low-dose beta-brigitte and high intensity statin therapy. Nitroglycerin as needed on discharge for recurrent angina. 911 if angina does not resolve within 5 minutes of nitroglycerin. Recommended cardiac rehab but he would like to think about it. Follow-up closely with his primary granulator tender. 3. Dyslipidemia: Continue high intensity statin therapy, which was initiated during this hospital stay. He was on a lower dose at home. If adjustment in statin therapy does not show much improvement in elevated triglycerides, could consider specific treatment for hypertriglyceridemia, in addition to statin therapy. 4. Disposition: Plan of care communicated with Dr. Walker of the primary hospitalist service. Follow-up with his primary granulator tender, Dr. Tejada, in 1 week (also stressed to pt). Admission and Anticipated Discharge Date Admission Date: August 11, 2022 Subjective Patient seen this morning. He denies angina. Able to ambulate in the hallway without angina. Feels much better overall. Denies shortness of breath, syncope, near syncope, palpitations, edema, or bleeding. His friend was sitting at the bedside for some of today's visit. Physical Exam Physical Exam: Gen.: No acute distress. Alert and oriented. HEENT: Anicteric sclera. Neck: Thick neck. Cardiac: No ventricular heave. Regular. Normal S1-S2. No murmurs, rubs, or gallops. Pulmonary: Clear to auscultation bilaterally without wheezes, rales, or rhonchi. Abdomen: Soft, nontender, nondistended, with normoactive bowel sounds. No bruits noted. Extremities: 2+ radial pulses bilaterally. Right radial cath site clean, dry, and intact without erythema or discharge. No hematoma. 2+ posterior tibialis pulses bilaterally. No edema or cyanosis. Psychiatric: Affect appears appropriate. Results & Data ([facility]) Vital Signs (Past 12 Hours) Vital Signs Temp Pulse Pulse Resp BP Pulse Ox O2 Del Method 08/12/22 08:00 66 08/12/22 07:00 36.8 C 73 20 124/67 96 Room Air 08/12/22 04:35 36.6 C 72 18 127/70 96 Room Air 08/11/22 23:52 36.9 C 65 16 122/74 95 Room Air Laboratory Results Laboratory Results - last 24 hr 08/11/22 08/11/22 08/11/22 09:52 12:32 13:01 WBC RBC Hgb Hct MCV MCH MCHC RDW Std Deviation RDW Coeff of Jose Angel Plt Count MPV Activ Coag Time Kaolin 239 H 257 H Sodium Potassium Chloride Carbon Dioxide Anion Gap BUN Creatinine Est Cr Clr Drug Dosing Est GFR ( Amer) Est GFR (Non-Af Amer) BUN/Creatinine Ratio Glucose Calcium LDL Cholesterol Direct 111 08/12/22 08/12/22 10:10 10:10 WBC 8.17 RBC 4.71 Hgb 14.5 Hct 41.8 MCV 88.7 MCH 30.8 MCHC 34.7 RDW Std Deviation 40.9 RDW Coeff of Jose Angel 12.6 Plt Count 192 MPV 8.8 L Activ Coag Time Kaolin Sodium 138 Potassium 4.0 Chloride 106 Carbon Dioxide 25 Anion Gap 7 BUN 15 Creatinine 1.07 Est Cr Clr Drug Dosing 104.5 Est GFR ( Amer) 93.3 Est GFR (Non-Af Amer) 80.5 BUN/Creatinine Ratio 14.0 Glucose 133 H Calcium 9.2 LDL Cholesterol Direct Diagnostic Findings Telemetry personally reviewed: Sinus rhythm. No arrhythmia. Cardiac cath 08/11/2022: Coronary angiography: 1. Left main: Distal left main 30%. 2. Left anterior descending: Proximal LAD 30 to 40%. Luminal irregularities within the mid LAD. LAD does not extend to the apex. Large D1 with proximal 20% stenosis. 3. Circumflex: Proximal circumflex 20%. Mid circumflex 50 to 70% followed by 70 to 80% stenosis. KENDRA-3 flow. OM1 without significant CAD. 4. Right coronary artery: RCA is large and dominant. Proximal RCA 20 to 30%. Diffuse mid RCA 20 to 30%. Distal RCA 90%. PDA and PL without significant CAD. KENDRA-3 flow. Left heart catheterization: 1. Left ventriculography was not performed. 2. No significant aortic stenosis. 3. Mildly elevated LVEDP; 15 mmHg. Interventional Summary: 1. Successful PCI of mid circumflex with single drug-eluting stent (3.5 x 28 mm Xience; postdilated with 3.75 NC). 2. Successful PCI of distal RCA with single drug-eluting stent (2.75 x 15 mm Xience; postdilated with 3.75 NC). Medications Administered Current Inpatient Medications Acetaminophen (Acetaminophen 325 Mg Tab) 650 mg PO Q4H PRN PRN Reason: Pain or Fever Stop: 09/10/22 08:28 Aspirin (Aspirin 81 Mg Ectab) [facility] Stop: 09/10/22 08:59 Last Admin: 08/12/22 09:03 Dose: 81 mg Atorvastatin Calcium (Atorvastatin 40 Mg Tab) 80 mg PO HS [facility] Stop: 09/10/22 20:59 Last Admin: 08/11/22 19:37 Dose: 80 mg Clopidogrel Bisulfate (Clopidogrel Bisulfate 75 Mg Tab) 75 mg PO QAM [facility] Stop: 09/11/22 08:59 Last Admin: 08/12/22 09:03 Dose: 75 mg Metoprolol Tartrate (Metoprolol Tartrate 25 Mg Tab) 25 mg PO BID [facility] Stop: 09/09/22 20:59 Last Admin: 08/12/22 09:03 Dose: 25 mg Nitroglycerin (Nitroglycerin Sl 0.4 Mg/Tab Tab) 0.4 mg SL UD PRN PRN Reason: Chest Pain Stop: 09/09/22 18:38 Ondansetron HCl (Ondansetron Inj 2 Mg/Ml 2 Ml Vial) 4 mg IV Q6H PRN PRN Reason: Nausea Stop: 09/09/22 18:38 PG Care Time/CCT Total # of Minutes Spent Total Time Spent with Patient: Total time spent is greater than 50% in coordination of care (as documented) at patient's floor/unit and/or counseling patient: Coding Level of Care Code 45704 Subseq Hosp Care Lvl 3 Diagnoses Angina pectoris, unstable I20.0 CAD (coronary artery disease) I25.10 S/P coronary artery stent placement Z95.5 Dyslipidemia E78.5
--- NOTE | 2022-08-13 22:41 | Electrocardiogram Report ---
Test Reason : Blood Pressure : / mmHG Vent. Rate : 065 BPM Atrial Rate : 065 BPM P-R Int : 218 ms QRS Dur : 088 ms QT Int : 382 ms P-R-T Axes : 018 016 -17 degrees QTc Int : 397 ms Sinus rhythm with 1st degree A-V block Nonspecific T wave abnormality Abnormal ECG When compared with ECG of 11-AUG-2022 13:46, T wave inversion less evident in Inferolateral leads Confirmed by Sp Alicea ([id number]) on 08/13/2022 10:41:26 PM Referred By: REFERRED SELF Confirmed By:Sp Alicea
== END 2022-08-12 14:34 | disposition home or self-care (01) | DRG 247 ==
LOC: EDINP 15:03 → ED 15:03 → EDINP 21:48 → 4W 22:01 → SUATTDRO 08-11 21:07